=== PATIENT | female | born 1975 ===

== ENCOUNTER 2016-11-16 11:33 | Emergency (ER) | payer MEDICAID ==
[2016-11-16] MEDS ORDERED: Sodium Chloride 0.9% 1,000 ML IV STA (12:00)
[2016-11-16] MEDS ORDERED: Sodium Chloride 0.9% 1,000 ML ONE (12:06)
[2016-11-16 12:22] LABS: BASO % 0.6 % (0.0-2.0); EOS # 0.2 K/uL (0.0-0.7); HEMATOCRIT 29.8 % (34.0-47.0); LYMPH # 2.4 K/uL (1.0-4.3); LYMPH % 31.5 % (20.0-40.0); MEAN CORPUSCULAR HEMOGLOBIN 19.3 pg (27.0-31.0); MEAN CORPUSCULAR HGB CONC 31.1 g/dL (33.0-37.0); MONO # 0.5 K/uL (0.0-0.8); RED CELL DISTRIBUTION WIDTH 18.5 % (11.5-14.5); WHITE BLOOD COUNT 7.7 K/uL (4.8-10.8)
[2016-11-16 12:38] LABS: CHLORIDE 102 mmol/L (98-107); SODIUM 141 mmol/L (132-148)
[2016-11-16 12:40] LABS: BILIRUBIN,TOTAL 0.4 mg/dL (0.2-1.3); GFR AFRICAN-AMERICAN > 60
[2016-11-16 12:41] LABS: ALB/GLOB RATIO 0.9 (1.0-2.1); ALKALINE PHOSPHATASE 147 U/L (38-126); ALT/SGPT 27 U/L (9-52); AST/SGOT 22 U/L (14-36); BLOOD UREA NITROGEN 6 mg/dL (7-17); CARBON DIOXIDE 25 mmol/L (22-30); GLUCOSE,RANDOM 112 mg/dL (65-105); TOTAL PROTEIN 7.7 g/dL (6.3-8.3)
[2016-11-16 12:42] LABS: CALCIUM 8.9 mg/dl (8.6-10.4)
--- NOTE | 2016-11-16 12:51 | CT ---
PROCEDURE: CT HEAD WITHOUT CONTRAST. HISTORY: Headache COMPARISON: None available. TECHNIQUE: Axial computed tomography images were obtained through the head/brain without intravenous contrast. Radiation dose: Total exam DLP = 828.07 mGy-cm. This CT exam was performed using one or more of the following dose reduction techniques: Automated exposure control, adjustment of the mA and/or kV according to patient size, and/or use of iterative reconstruction technique. FINDINGS: HEMORRHAGE: No intracranial hemorrhage. BRAIN: No mass effect or edema. No atrophy or chronic microvascular ischemic changes. VENTRICLES: Unremarkable. No hydrocephalus. CALVARIUM: Unremarkable. PARANASAL SINUSES: Unremarkable as visualized. No significant inflammatory changes. MASTOID AIR CELLS: Unremarkable as visualized. No inflammatory changes. OTHER FINDINGS: None. IMPRESSION: Normal CT of the Head. No intracranial mass, hemorrhage or evidence of acute infarct.
--- NOTE | 2016-11-16 13:10 | C.PDOC ---
History Of Present Illness 41 yr old female presents to the ER with complaints of headache for the past 5 days. Patient states she normally doesn't get headache like this but admits to similar headache several months ago with relief from treatment. Patient states the current headache is left temporal with watery left eye and photophobic. Denies fever, chills, vision changes, nausea, vomiting, weakness or numbness. Time Seen by Provider: 11/16/16 11:52 Chief Complaint (Nursing): Headache History Per: Patient History/Exam Limitations: no limitations Onset/Duration Of Symptoms: Days (5 days) Past Medical History Reviewed: Historical Data, Nursing Documentation, Vital Signs Vital Signs: Last Vital Signs Temp 98.2 F 11/16/16 19:17 Pulse 65 11/16/16 19:17 Resp 18 11/16/16 19:17 BP 110/62 11/16/16 19:17 Pulse Ox 100 11/16/16 19:19 - Medical History PMH: Gastritis Family History: States: Hypertension - Social History Hx Tobacco Use: No Hx Alcohol Use: No Hx Substance Use: No - Immunization History Hx Tetanus Toxoid Vaccination: No Hx Influenza Vaccination: No Hx Pneumococcal Vaccination: No Review Of Systems Except As Marked, All Systems Reviewed And Found Negative. Constitutional: Negative for: Fever, Chills Eyes: Negative for: Vision Change Gastrointestinal: Negative for: Nausea, Vomiting Neurological: Positive for: Headache. Negative for: Weakness, Numbness Physical Exam - Physical Exam Appears: Non-toxic, In Acute Distress (Uncomfortable) Skin: Warm, Dry, No Rash Head: Atraumatic, Normacephalic Eye(s): bilateral: Normal Inspection, PERRL, EOMI Chest: Symmetrical, No Tenderness Cardiovascular: Rhythm Regular, No Murmur Respiratory: Normal Breath Sounds, No Rales, No Rhonchi, No Stridor, No Wheezing Neurological/Psych: Oriented x3, Normal Speech, Normal Motor ED Course And Treatment - Laboratory Results Result Diagrams: 11/16/16 12:13 11/16/16 12:13 O2 Sat by Pulse Oximetry: 100 (RA ) Pulse Ox Interpretation: Normal - CT Scan/US CT - Head Other Rad Studies (CT/US): Read By Radiologist, Radiology Report Reviewed CT/US Interpretation: PROCEDURE: CT HEAD WITHOUT CONTRAST. HISTORY: Headache. COMPARISON: None available. TECHNIQUE: Axial computed tomography images were obtained through the head/brain without intravenous contrast. Radiation dose: Total exam DLP = 828.07 mGy-cm. This CT exam was performed using one or more of the following dose reduction techniques: Automated exposure control, adjustment of the mA and/or kV according to patient size, and/ or use of iterative reconstruction technique. FINDINGS: HEMORRHAGE: No intracranial hemorrhage. BRAIN: No mass effect or edema. No atrophy or chronic microvascular ischemic changes. VENTRICLES: Unremarkable. No hydrocephalus. CALVARIUM: Unremarkable. PARANASAL SINUSES: Unremarkable as visualized. No significant inflammatory changes. MASTOID AIR CELLS: Unremarkable as visualized. No inflammatory changes. OTHER FINDINGS: None. IMPRESSION: Normal CT of the Head. No intracranial mass, hemorrhage or evidence of acute infarct. CTA - Head/Neck Other Rad Studies (CT/US): Read By Radiologist, Radiology Report Reviewed CT/US Interpretation: PROCEDURE: CTA HEAD AND NECK WITH CONTRAST and. HISTORY : L evangelical OSUNA, elevated ESR, r/o vasculitis. COMPARISON: Noncontrast head CT from 11/16/2016. TECHNIQUE: Initial noncontrast head CT was performed. Subsequently, CT angiogram of the head and neck were performed after the intravenous administration of 80 mL of Omnipaque 350. Contiguous 1.5mm thick images were obtained in the axial plane of the neck. 2-D coronal and sagittal MPR images were obtained. Imaging postprocessing was performed with 3-D images also obtained. A delayed contrast head CT was also obtained. This CT exam was performed using one or more of the following dose reduction techniques: Automated exposure control, adjustment of the mA and/or kV according to patient size, and/or use of iterative reconstruction technique. Contrast dose: 100 mL Visipaque. Radiation dose: Total exam DLP = 488.37 mGy-cm. FINDINGS: HEAD: Right: The intracranial internal carotid artery, and anterior and middle cerebral arteries are widely patent. Left: The intracranial internal carotid artery, and anterior and middle cerebral arteries are widely patent. Posterior circulation: The visualized intracranial vertebral arteries, basilar artery and posterior cerebral arteries are widely patent. Ther is no endoluminal filling defect to suggest thrombus. There is no intracranial saccular aneurysm. There is no abnormal enhancement on the postcontrast CT. NECK: There is a three vessel aortic arch. There is no stenosis at the origins of the great vessels at the level of the aortic arch. Right Carotid: On the right, the common carotid, internal carotid and external carotid arteries are widely patent. There is no hemodynamically significant stenosis in the internal carotid arteries. Left Carotid: On the left, the common carotid, internal carotid and external carotid arteries are widely patent.There is no hemodynamically significant stenosis in the internal carotid arteries. The vertebral arteries are widely patent. The vertebral artery is hypoplastic, an anatomic variant. The visualized soft tissues of the neck are normal. The visualized brain and cervical spine are within normal limits. The lung apices are clear. IMPRESSION: Normal CTA of the head and neck. Progress Note: Patient is treated with Tylenol PO, Reglan IVPB for the pain. On reeval, patient reports improvment of pain. CT of head is done which resulted negative. Patient was found to have elevated ESR & severe CRP. Spoke to Dr. Marks regarding the patient who reccomended to get a CTA of head & neck & treat patient with Decadron & Magnesium Sulfate. CTA of head/neck was done and found to be negative. Spoke to again and made aware of the results who is highly suspicious of temporal arteritis. As per request, patient be put on Prednisone 60mg daily and pepcid PO. Case was also discussed with the patient PMD, Dr. Esther Vance who accepted the patient under his services. will be the consult. came and examined the patient at bedside. Patient reported she feels better and is currently asymptomatic. feels less like temporal arteritis since the patient responded to 1 dose of medicine. feels the patient is stable to be discharged home. Patient instructed to follow up with and in 1-2 days for further evaluation. 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 - Scribe Statement The provider has reviewed the documentation as recorded by the Scribe Cindy Conner All medical record entries made by the Scribe were at my direction and personally dictated by me. I have reviewed the chart and agree that the record accurately reflects my personal performance of the history, physical exam, medical decision making, and the department course for this patient. I have also personally directed, reviewed, and agree with the discharge instructions and disposition.
[2016-11-16] MEDS ORDERED: Dexamethasone 4 mg/1 ml IVP STA (13:50)
[2016-11-16] MEDS ORDERED: Magnesium Sulfate 1 gm in D5W 1 GM/100 ML BAG IVPB STA (13:52)
[2016-11-16] MEDS ORDERED: Dexamethasone 4 mg/1 ml ONE (14:04)
[2016-11-16] MEDS ORDERED: Magnesium Sulfate 1 gm in D5W 2 GM/200 ML BAG IVPB ONE (14:09)
[2016-11-16] MEDS ORDERED: Magnesium Sulfate 1 gm in D5W 1 GM/100 ML BAG IVPB ONE (14:15)
[2016-11-16] MEDS ORDERED: Iodixanol 320 MG/ML 100 ML BOTTLE IV ONE (15:23)
--- NOTE | 2016-11-16 16:16 | CT ---
PROCEDURE: CTA HEAD AND NECK WITH CONTRAST and HISTORY: L confucianism OSUNA, elevated ESR, r/o vasculitis COMPARISON: Noncontrast head CT from 11/16/2016. TECHNIQUE: Initial noncontrast head CT was performed. Subsequently, CT angiogram of the head and neck were performed after the intravenous administration of 80 mL of Omnipaque 350. Contiguous 1.5mm thick images were obtained in the axial plane of the neck. 2-D coronal and sagittal MPR images were obtained. Imaging postprocessing was performed with 3-D images also obtained. A delayed contrast head CT was also obtained. This CT exam was performed using one or more of the following dose reduction techniques: Automated exposure control, adjustment of the mA and/or kV according to patient size, and/or use of iterative reconstruction technique. Contrast dose: 100 mL Visipaque Radiation dose: Total exam DLP = 488.37 mGy-cm. FINDINGS: HEAD: Right: The intracranial internal carotid artery, and anterior and middle cerebral arteries are widely patent. Left: The intracranial internal carotid artery, and anterior and middle cerebral arteries are widely patent. Posterior circulation: The visualized intracranial vertebral arteries, basilar artery and posterior cerebral arteries are widely patent. Ther is no endoluminal filling defect to suggest thrombus. There is no intracranial saccular aneurysm. There is no abnormal enhancement on the postcontrast CT. NECK: There is a three vessel aortic arch. There is no stenosis at the origins of the great vessels at the level of the aortic arch. Right Carotid: On the right, the common carotid, internal carotid and external carotid arteries are widely patent. There is no hemodynamically significant stenosis in the internal carotid arteries. Left Carotid: On the left, the common carotid, internal carotid and external carotid arteries are widely patent.There is no hemodynamically significant stenosis in the internal carotid arteries. The vertebral arteries are widely patent. The vertebral artery is hypoplastic, an anatomic variant. The visualized soft tissues of the neck are normal. The visualized brain and cervical spine are within normal limits. The lung apices are clear. IMPRESSION: Normal CTA of the head and neck.
[2016-11-16 18:45] VITALS: RESP 18
--- NOTE | 2016-11-16 18:58 | CP.PCM.CON ---
History of Present Illness - History of Present Illness History of Present Illness: Mrs. Lopez is a 41-year-old woman with a past medical history of GERD, who presented to the ED with complaints of a headache that has been intermittent for the last 4 days. She does not have a history of headache, but she states that this headache was left sided, felt like pressure, sometimes throbbing and was associated with photophobia. She was given a dose of Decadron 10 mg and Magnesium sulfate 2 grams after I spoke with the PAFabiana. The patient improved and has no headache now with no complaints. Review of Systems - Review of Systems All systems: reviewed and no additional remarkable complaints except Past Patient History - Past Social History Smoking Status: Never Smoked - GASTROINTESTINAL Hx Gastritis: Yes - PSYCHIATRIC Hx Substance Use: No - SURGICAL HISTORY Hx Surgeries: No - ANESTHESIA Hx Anesthesia: No Hx Anesthesia Reactions: No Meds Allergies/Adverse Reactions: Allergies Allergy/AdvReac Type Severity Reaction Status Date / Time No Known Allergies Allergy Verified 11/16/16 11:38 Physical Exam - Constitutional Appears: Well - Head Exam Head Exam: ATRAUMATIC, NORMAL INSPECTION, NORMOCEPHALIC - Eye Exam Eye Exam: EOMI, Normal appearance, PERRL - ENT Exam ENT Exam: Mucous Membranes Moist, Normal Exam - Neck Exam Neck exam: Positive for: Normal Inspection - Respiratory Exam Respiratory Exam: Clear to Auscultation Bilateral, NORMAL BREATHING PATTERN - Cardiovascular Exam Cardiovascular Exam: REGULAR RHYTHM, +S1, +S2 - GI/Abdominal Exam GI & Abdominal Exam: Normal Bowel Sounds, Soft. absent: Tenderness - Rectal Exam Rectal Exam: Deferred - Extremities Exam Extremities exam: Positive for: normal inspection - Back Exam Back exam: NORMAL INSPECTION - Neurological Exam Neurological exam: Alert, CN II-XII Intact, Normal Gait, Oriented x3, Reflexes Normal - Expanded Neurological Exam Expanded Patient oriented to: person, place, time Cranial nerves: EOM's Intact: Normal, Facial Sensation: Normal, Nystagmus: Normal Ataxia: No Cerebellar Function: Finger to Nose: Normal, Heel to Barrientos: Normal Upper motor neuron: Babinski Sign: Normal Sensory exam: Lower Extremity Light Touch: Normal, Lower Extremity Pin Prick: Normal, Upper Extremity Light Touch: Normal, Upper Extremity Pin Prick: Normal Neuro motor strength exam: Left Upper Extremity: 5, Right Upper Extremity: 5, Left Lower Extremity: 5, Right Lower Extremity: 5 DTR: Achilles Tendon Left: 2+, Achilles Tendon Right: 2+, Bicep Left: 2+, Bicep Right: 2+, Brachioradialis Left: 2+, Brachioradialis Right: 2+, Patellar Left: 2 +, Patellar Right: 2+, Tricep Left: 2+, Tricep Right: 2+ - Psychiatric Exam Psychiatric exam: Normal Affect, Normal Mood - Skin Skin Exam: Dry, Intact, Normal Color, Warm Results - Vital Signs Recent Vital Signs: Last Vital Signs Temp 97.9 F 11/16/16 18:44 Pulse 71 11/16/16 18:44 Resp 18 11/16/16 18:44 BP 110/65 11/16/16 18:44 Pulse Ox 98 11/16/16 18:44 - Labs Result Diagrams: 11/16/16 12:13 11/16/16 12:13 - Imaging and Cardiology CT scan - head Status: Image reviewed by me, Report reviewed by me (CTA head is normal) Assessment & Plan (1) Headache Assessment and Plan: Likely tension-type headache. Her ESR was slightly elevated, but not too elevated for her gender and age. She is too young to have temporal arteritis, and she has no symptoms of tenderness in the latter day region, no visual changes and no PMR. I recommend the patient follow-up with her PMD tomorrow. She is now asymptomatic and there is no further work-up needed. Thank you. Status: Acute Priority: High
[2016-11-16 19:17] VITALS: BP 110/62; PULSE 65; TEMP 98.2
[2016-11-16 19:19] VITALS: O2SAT 100
== END 2016-11-16 19:17 | disposition home or self-care (01) ==
LOC: C.ER 11:33 → UNDOADMIN 16:28 → C.9E 16:28 → C.3T 18:30 → C.9E 19:04 → C.3T 19:04
DX: R51 Headache (principal)
CPT/HCPCS: 70450; 70496; 70498; 80053; 85025; 85651; 86140; 96361; 96365; 96366; 96375; 99285; J1100; J2765; J3475; J7040; Q9967

== ENCOUNTER 2017-02-17 05:24 | Emergency (ER) | payer MEDICAID ==
[2017-02-17 05:41] VITALS: BP 101/72; PULSE 73; RESP 16; TEMP 97.4; O2SAT 100
--- NOTE | 2017-02-17 05:50 | C.PDOC ---
History Of Present Illness 41 year old female with Hx of gastritis presents to the ED c/o abdominal pain that started this morning, patient took her omeprazole with no relief. 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 Pt states these symptoms feel similar to her past gastritis. Upon arrival her pain was resolved. Patient denies fever, nausea, vomiting, diarrhea. Time Seen by Provider: 02/17/17 05:42 Chief Complaint (Nursing): Abdominal Pain History Per: Patient History/Exam Limitations: no limitations Onset/Duration Of Symptoms: Hrs Current Symptoms Are (Timing): Gone Location Of Pain/Discomfort: Epigastric Radiation Of Pain To:: None Quality Of Discomfort: "Pain" Associated Symptoms: denies: Fever, Nausea, Vomiting, Diarrhea, Back Pain, Constipation, Urinary Symptoms Exacerbating Factors: None Alleviating Factors: None Recent travel outside of the [place]: No Additional History Per: Patient Abnormal Vaginal Bleeding: No Past Medical History Reviewed: Historical Data, Nursing Documentation, Vital Signs Vital Signs: Last Vital Signs Temp 97.4 F L 02/17/17 05:32 Pulse 73 02/17/17 05:32 Resp 16 02/17/17 05:32 BP 101/72 02/17/17 05:32 Pulse Ox 100 02/17/17 06:01 - Medical History PMH: Gastritis Surgical History: No Surg Hx Family History: States: Unknown Family Hx, Hypertension - Social History Hx Tobacco Use: No Hx Alcohol Use: No Hx Substance Use: No - Immunization History Hx Tetanus Toxoid Vaccination: No Hx Influenza Vaccination: No Hx Pneumococcal Vaccination: No Review Of Systems Constitutional: Negative for: Fever, Chills Cardiovascular: Negative for: Chest Pain Gastrointestinal: Positive for: Abdominal Pain. Negative for: Nausea, Vomiting Genitourinary: Negative for: Dysuria, Hematuria, Vaginal Discharge Physical Exam - Physical Exam Appears: Non-toxic, No Acute Distress Skin: Normal Color, Warm, Dry Head: Atraumatic, Normacephalic Eye(s): bilateral: Normal Inspection, PERRL, EOMI Oral Mucosa: Moist Neck: Normal ROM, Supple Cardiovascular: Rhythm Regular, No Murmur Respiratory: Normal Breath Sounds, No Rhonchi Gastrointestinal/Abdominal: Soft, No Tenderness, No Distention, No Guarding, No Rebound Extremity: Normal ROM Neurological/Psych: Oriented x3, Normal Speech, Normal Cognition Gait: Steady ED Course And Treatment O2 Sat by Pulse Oximetry: 100 (On RA) Pulse Ox Interpretation: Normal Progress Note: On reassessment patient refused any lab work, or imaging done and refused meds. Pt states the symptoms resolved and is requesting to be discharged home. 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 - Scribe Statement The provider has reviewed the documentation as recorded by the Scribe Derek Pack All medical record entries made by the Scribe were at my direction and personally dictated by me. I have reviewed the chart and agree that the record accurately reflects my personal performance of the history, physical exam, medical decision making, and the department course for this patient. I have also personally directed, reviewed, and agree with the discharge instructions and disposition.
== END 2017-02-17 05:56 | disposition home or self-care (01) ==
LOC: C.ER 05:24
DX: K29.70 Gastritis, unspecified, without bleeding (principal)

== ENCOUNTER → 2017-06-26 18:35 | Emergency (ER) | payer MEDICAID | END | disposition left against medical advice (07) | LOC: C.ER 18:35 | DX: Z02.89 Encounter for other administrative examinations (principal); R51 Headache ==

== ENCOUNTER 2017-10-31 23:05 | Emergency (ER) | payer MEDICAID ==
[2017-10-31 23:32] VITALS: RESP 20
[2017-10-31] MEDS ORDERED: Dexamethasone 4 mg/1 ml IVP STA (23:51)
[2017-10-31] MEDS ORDERED: Magnesium Sulfate 1 gm in D5W 1 GM/100 ML BAG IVPB STA (23:51)
[2017-10-31] MEDS ORDERED: Sodium Chloride 0.9% 1,000 ML IV STA (23:51)
--- NOTE | 2017-10-31 23:55 | C.PDOC ---
History Of Present Illness 42 year old female with PMHx of gastritis presents to the ED c/o headache that she states is worse than usual for the past 3 days. Patient was seen on october 2016 for similar, current headache similar to prior. Patient states no relief with Tylenol, last dose taken yesterday. Patient denies fever, chills, visual changes, neck pain, injury, fall, trauma, nausea, vomit, dizziness, weakness, numbness. Time Seen by Provider: 10/31/17 23:39 Chief Complaint (Nursing): Headache History Per: Patient History/Exam Limitations: no limitations Onset/Duration Of Symptoms: Days (3) Current Symptoms Are (Timing): Still Present Quality: "Pain" Preceeding Symptoms: None Recent travel outside of the [place]: No Additional History Per: Patient Past Medical History Reviewed: Historical Data, Nursing Documentation, Vital Signs Vital Signs: Last Vital Signs Temp 98.3 F 10/31/17 23:29 Pulse 98 H 10/31/17 23:29 Resp 20 10/31/17 23:29 BP 101/69 10/31/17 23:29 Pulse Ox 99 11/01/17 01:52 - Medical History PMH: Gastritis, Gastrointestinal Ulcer, Migraine Surgical History: No Surg Hx Family History: States: Hypertension - Social History Hx Tobacco Use: No Hx Alcohol Use: No Hx Substance Use: No - Immunization History Hx Tetanus Toxoid Vaccination: No Hx Influenza Vaccination: No Hx Pneumococcal Vaccination: No Review Of Systems Constitutional: Negative for: Fever, Chills Eyes: Negative for: Vision Change Cardiovascular: Negative for: Chest Pain, Palpitations Respiratory: Negative for: Cough, Shortness of Breath Gastrointestinal: Negative for: Nausea, Vomiting Musculoskeletal: Negative for: Neck Pain Neurological: Positive for: Headache. Negative for: Weakness, Numbness, Dizziness Physical Exam - Physical Exam Appears: Non-toxic, In Acute Distress Skin: Normal Color, Warm, Dry Head: Atraumatic, Normacephalic Eye(s): bilateral: Normal Inspection, PERRL, EOMI Oral Mucosa: Moist Neck: Normal ROM, No Midline Cervical Tenderness, Supple Chest: Symmetrical Cardiovascular: Rhythm Regular Respiratory: Normal Breath Sounds, No Rales, No Rhonchi, No Wheezing Gastrointestinal/Abdominal: Soft, No Tenderness, No Guarding, No Rebound Extremity: Normal ROM, No Tenderness, No Swelling Neurological/Psych: Oriented x3, Normal Speech, Normal Motor, Normal Sensation Gait: Steady ED Course And Treatment O2 Sat by Pulse Oximetry: 99 (ON RA) Pulse Ox Interpretation: Normal Reevaluation Time: :54 Reassessment Condition: Improved (OSUNA RESOLVED) Medical Decision Making Medical Decision Making: Impression: headache Plan: * Decadron 8 mg IVP * Magnesium sulfate IVPB * Reglan 10 mg IVP * IV fluids * TYlenol 975 mg PO * Depacon IVPB Disposition Counseled Patient/Family Regarding: Diagnosis, Need For Followup - Disposition Referrals: YOUR,PMD [Other] Disposition: HOME/ ROUTINE Disposition Time: :54 Condition: IMPROVED Instructions: Headache, Adult (DC) Forms: [employer] (Serbian) - Clinical Impression Clinical Impression: Headache - Scribe Statement The provider has reviewed the documentation as recorded by the Scribe Derek Pack All medical record entries made by the Scribe were at my direction and personally dictated by me. I have reviewed the chart and agree that the record accurately reflects my personal performance of the history, physical exam, medical decision making, and the department course for this patient. I have also personally directed, reviewed, and agree with the discharge instructions and disposition.
[2017-10-31] MEDS ORDERED: Sodium Chloride 0.9% 1,000 ML ONE (23:59)
[2017-11-01] MEDS ORDERED: Magnesium Sulfate 1 gm in D5W 1 GM/100 ML BAG IVPB ONE
[2017-11-01] MEDS ORDERED: Dexamethasone 4 mg/1 ml ONE
[2017-11-01 02:04] VITALS: BP 108/68; PULSE 71; TEMP 97.7; O2SAT 98
== END 2017-11-01 02:06 | disposition home or self-care (01) ==
LOC: C.ER 23:05
DX: R51 Headache (principal)
CPT/HCPCS: 96365; 96368; 96375; 99285; J1100; J2765; J3475; J7030